=== PATIENT | male | born 1975 | race Hispanic/Latino ===

== ENCOUNTER → 2017-08-02 | Outpatient (CLI) | payer MEDICARE ==
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
--- NOTE | 2017-08-02 16:49 | Diagnostic Imaging Report ---
PROCEDURE:US RETROPERITONEAL ( KIDNEY ). COMPARISON:07/05/2016 INDICATIONS:CALCULUS KIDNEY/ UTI TECHNIQUE: Kat-scale and color sonographic images of the bilateral kidneys and bladder where obtained in transverse and longitudinal planes. FINDINGS: RIGHT KIDNEY: Status post right nephrectomy. LEFT KIDNEY: 12.6 cm, cortex 1.8 cm Cysts: None Solid masses: None Stones: None Hydronephrosis: Mild Echogenicity: Normal Bladder: Unremarkable. Left ureteral jet is visualized. Prostate: Unremarkable (volume of 35.98 cc) CONCLUSION: Status post right nephrectomy. Mild left hydronephrosis, unchanged since the 07/05/2016 examination. Dictated by: Kyle Soliz M.D. on 08/02/2017 at 16:50 Electronically approved by: Kyle Soliz M.D. on 08/02/2017 at 16:50
== END ==
LOC: US 13:38
PROVIDERS: ATTEND Urology
DX: N20.0 Calculus of kidney (principal); N39.0 Urinary tract infection, site not specified
CPT/HCPCS: 74018; 76770

== ENCOUNTER → 2017-11-06 | Outpatient (CLI) | payer MEDICARE ==
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
== END ==
LOC: CT 08:29
PROVIDERS: ATTEND Urology
DX: N20.0 Calculus of kidney (principal)
CPT/HCPCS: 74176

== ENCOUNTER → 2019-09-21 | Outpatient (CLI) | payer MEDICARE ==
--- NOTE | 2019-09-21 11:31 | Diagnostic Imaging Report ---
EXAM: US ABDOMEN COMPLETE DATE: 09/21/2019 9:06 AM INDICATION: Right upper quadrant abdominal pain COMPARISON: CT abdomen/pelvis from 11/06/2017 FINDINGS: The pancreas is not well-visualized secondary to prominent overlying bowel gas. The liver is normal in size measuring 13.7 cm in length. Hepatic echogenicity is within normal limits. No focal hepatic abnormalities identified. The main portal vein is patent with antegrade flow and diameter of 1.2 cm, within normal limits. The gallbladder is surgically absent. There is no biliary ductal dilatation. The common bile duct measures 3 mm. The spleen measures 10.2 cm in length and demonstrates an unremarkable sonographic appearance. The right kidney is surgically absent. The left kidney measures 14.4 x 7.7 x 6.6 cm with normal cortical thickness/echogenicity. There is stable left-sided hydronephrosis and/or multiple parapelvic cysts. There is no evidence for solid renal mass or shadowing calculi. The visual as portions the IVC and aorta are within normal limits. There is no ascites visualized. IMPRESSION: 1. Status post right nephrectomy. Stable moderate left-sided hydronephrosis and/or multiple parapelvic cysts, findings are grossly unchanged from the prior CT examination from 11/06/2017. No shadowing calculi identified. 2. Status post cholecystectomy. Signed by: Dr. Abram Singh MD on 09/21/2019 11:28 AM
== END ==
LOC: US 08:48
PROVIDERS: ATTEND Urology
DX: R10.11 Right upper quadrant pain (principal)
CPT/HCPCS: 76700

== ENCOUNTER → 2020-12-23 | Day surgery (SDC) | payer MEDICARE ==
[2020-12-22 09:47] LABS: BASOPHILS # (AUTO) 0.1 (0.0-0.1); EOSINOPHILS # (AUTO) 0.4 (0.0-0.4); EOSINOPHILS % 6.9 % (0.0-6.0); HEMATOCRIT 40.2 % (38.2-49.6); LYMPHOCYTES # (AUTO) 1.2 (1.0-3.2); LYMPHOCYTES % 23.8 % (18.0-39.1); MEAN CORPUSCULAR HEMOGLOBIN 28.1 pg (28-32); MEAN CORPUSCULAR HGB CONC 32.3 g/dL (31-35); MONOCYTES # (AUTO) 0.4 (0.2-0.8); MONOCYTES % 6.9 % (4.4-11.3); NEUTROPHILS # (AUTO) 3.1 (2.1-6.9); NEUTROPHILS % 61.2 % (38.7-80.0); PLATELET COUNT 253 x10e3/uL (140-360); RED BLOOD COUNT 4.62 x10e6/uL (4.3-5.7); RED CELL DISTRIBUTION WIDTH 12.1 % (11.7-14.4)
[2020-12-22 10:08] LABS: ANION GAP 11.7 mmol/L (8-16); CALCIUM 8.7 mg/dL (8.4-10.2); CREATININE, SERUM 0.62 mg/dL (0.72-1.25); POTASSIUM 3.7 mmol/L (3.5-5.1)
[~2020-12-23] MED LIST: BELLADONNA/OPIUM 30 MG SUPP RC ONE; BOTULINUM TOXIN TYPE A 100 UNIT VIAL IM ONE; CEFTRIAXONE 1 GM VIAL ONE; IOPAMIDOL 300MG/ML 50ML INFUS..BTL IV ONE; SODIUM CHLORIDE 0.9% 50ML 50 ML ONE
[2020-12-23 14:08] VITALS: BP 121/85
== END | disposition home or self-care (01) ==
LOC: OR 11:18
PROVIDERS: ATTEND Urology
DX: N39.46 Mixed incontinence (principal); N39.0 Urinary tract infection, site not specified; N35.912 Unspecified bulbous urethral stricture, male; G82.20 Paraplegia, unspecified; N32.89 Other specified disorders of bladder; Z90.5 Acquired absence of kidney; N32.0 Bladder-neck obstruction; N13.30 Unspecified hydronephrosis; N52.9 Male erectile dysfunction, unspecified; N31.9 Neuromuscular dysfunction of bladder, unspecified; T19.8XXA Foreign body in other parts of genitourinary tract, initial encounter; M79.5 Residual foreign body in soft tissue; I20.9 Angina pectoris, unspecified; W34.00XA Accidental discharge from unspecified firearms or gun, initial encounter; Z01.810 Encounter for preprocedural cardiovascular examination; Z01.812 Encounter for preprocedural laboratory examination; Z20.822 Contact with and (suspected) exposure to COVID-19; Z86.16 Personal history of COVID-19; Z87.442 Personal history of urinary calculi; Z87.891 Personal history of nicotine dependence
CPT/HCPCS: 36415; 52281; 74420; 80048; 85025; 93005; C1758; J0587; J0696; Q9967; U0002

== ENCOUNTER → 2021-06-30 | Outpatient (CLI) | payer MEDICARE ==
[~2021-06-30] MED LIST changes: -BELLADONNA/OPIUM 30 MG SUPP RC ONE; -BOTULINUM TOXIN TYPE A 100 UNIT VIAL IM ONE; -CEFTRIAXONE 1 GM VIAL ONE; -IOPAMIDOL 300MG/ML 50ML INFUS..BTL IV ONE; +IOPAMIDOL 370 MG/ML 200 ML INFUS..BTL INJ ONE; +SODIUM CHLORIDE 0.9% 250ML 250 ML ONE; -SODIUM CHLORIDE 0.9% 50ML 50 ML ONE
[2021-06-30 08:16] LABS: CREATININE, SERUM 0.63 mg/dL (0.72-1.25)
== END ==
LOC: CT 07:25
PROVIDERS: ATTEND Urology
DX: R31.21 Asymptomatic microscopic hematuria (principal)
CPT/HCPCS: 36415; 74178; 82565; 84520; J7050; Q9967

== ENCOUNTER → 2021-09-08 | Day surgery (SDC) | payer MEDICARE ==
[~2021-09-08] MED LIST changes: +AMOXICILLIN500 MG PO; +B&O 60MG R/S 60 MG SUPP PR ONE; +BOTULINUM TOXIN TYPE A 100 UNIT VIAL IM ONE; +CEFTRIAXONE 1 GM VIAL ONE; +DEXAMETHASONE SOD PHOS INJ 4 MG/ML SDV ONE; +FENTANYL CITRATE/PF 100MCG/2 ML INJ ONE; +GENTAMICIN 80MG/NS 100 ML 0 ML IV ONE; -IOPAMIDOL 370 MG/ML 200 ML INFUS..BTL INJ ONE; +IOPAMIDOL 610MG/1ML 300 MG/ML VIAL IV ONE; +LIDOCAINE HCL 2% LOCAL INJ 5 ML SDV VIAL INJ ONE; +MIDAZOLAM HCL 2 MG/2 ML VIAL ONE; +NITROFURANTOIN100 MG PO; +ONDANSETRON HCL INJ 2MG/ML 2ML 2 MG/ML VIAL ONE; +POVIDONE IODINE 0.05% 0.05 % ML PO ONE; +PROPOFOL IV EMULSION 10 MG/ML 20 ML VIAL ONE; +SEVOFLURANE INHAL SOLN 250 ML PEN BTL ONE; -SODIUM CHLORIDE 0.9% 250ML 250 ML ONE
[2021-09-08 07:55] LABS: BASOPHILS % 0.6 % (0.0-1.0); EOSINOPHILS # (AUTO) 0.2 (0.0-0.4); EOSINOPHILS % 2.9 % (0.0-6.0); HEMOGLOBIN 13.7 g/dL (14.0-18.0); LYMPHOCYTES # (AUTO) 1.2 (1.0-3.2); LYMPHOCYTES % 22.8 % (18.0-39.1); MEAN CORPUSCULAR HEMOGLOBIN 28.8 pg (28-32); MEAN CORPUSCULAR HGB CONC 32.6 g/dL (31-35); MEAN CORPUSCULAR VOLUME 88.4 fL (81-99); MONOCYTES # (AUTO) 0.5 (0.2-0.8); MONOCYTES % 8.4 % (4.4-11.3); NEUTROPHILS # (AUTO) 3.6 (2.1-6.9); NEUTROPHILS % 65.1 % (38.7-80.0); PLATELET COUNT 220 x10e3/uL (140-360); RED BLOOD COUNT 4.75 x10e6/uL (4.3-5.7); RED CELL DISTRIBUTION WIDTH 12.1 % (11.7-14.4)
[2021-09-08 08:22] LABS: ANION GAP 12.4 mmol/L (8-16); CALCIUM 8.9 mg/dL (8.4-10.2); CREATININE, SERUM 0.62 mg/dL (0.72-1.25); POTASSIUM 4.4 mmol/L (3.5-5.1)
[2021-09-08 10:15] VITALS: BP 138/84
== END | disposition home or self-care (01) ==
LOC: OR 06:50
PROVIDERS: ATTEND Urology
DX: N39.41 Urge incontinence (principal); N39.0 Urinary tract infection, site not specified; N35.912 Unspecified bulbous urethral stricture, male; N40.0 Benign prostatic hyperplasia without lower urinary tract symptoms; N32.89 Other specified disorders of bladder; N31.9 Neuromuscular dysfunction of bladder, unspecified; Z90.5 Acquired absence of kidney; S24.104S Unspecified injury at T11-T12 level of thoracic spinal cord, sequela; X95.9XXS Assault by unspecified firearm discharge, sequela; Z20.822 Contact with and (suspected) exposure to COVID-19
CPT/HCPCS: 36415; 52005; 52287; 74420; 80048; 85025; 87086; 93005; C1758; J0278; J0587; J1100; J2001; J2250; J2405; J2704; J3010; J7050; Q9967; U0002; J0696; J1580

== ENCOUNTER 2022-01-29 08:59 | Inpatient (IN) | payer MEDICARE ==
[~2022-01-29] VITALS: Ht 175.3 cm; Wt 81.6 kg
[~2022-01-29 08:59] MED LIST changes: -B&O 60MG R/S 60 MG SUPP PR ONE; -BOTULINUM TOXIN TYPE A 100 UNIT VIAL IM ONE; -CEFTRIAXONE 1 GM VIAL ONE; -DEXAMETHASONE SOD PHOS INJ 4 MG/ML SDV ONE; -FENTANYL CITRATE/PF 100MCG/2 ML INJ ONE; +GABAPENTIN300 MG PO; -GENTAMICIN 80MG/NS 100 ML 0 ML IV ONE; -IOPAMIDOL 610MG/1ML 300 MG/ML VIAL IV ONE; -LIDOCAINE HCL 2% LOCAL INJ 5 ML SDV VIAL INJ ONE; -MIDAZOLAM HCL 2 MG/2 ML VIAL ONE; -ONDANSETRON HCL INJ 2MG/ML 2ML 2 MG/ML VIAL ONE; -POVIDONE IODINE 0.05% 0.05 % ML PO ONE; -PROPOFOL IV EMULSION 10 MG/ML 20 ML VIAL ONE; -SEVOFLURANE INHAL SOLN 250 ML PEN BTL ONE
[2022-01-29] MEDS ORDERED: GENTAMICIN 80MG/NS 100 ML 200 ML IV ONE (09:35)
[2022-01-29] MEDS ORDERED: PIPERACILLIN/TAZOBACTAM 3.375 GM VIAL ONE (09:35)
[2022-01-29 09:52] LABS: BASOPHILS % 0.8 % (0.0-1.0); EOSINOPHILS # (AUTO) 0.3 (0.0-0.4); EOSINOPHILS % 6.6 % (0.0-6.0); HEMATOCRIT 41.5 % (38.2-49.6); HEMOGLOBIN 13.5 g/dL (14.0-18.0); LYMPHOCYTES # (AUTO) 1.2 (1.0-3.2); LYMPHOCYTES % 24.1 % (18.0-39.1); MEAN CORPUSCULAR HEMOGLOBIN 29.2 pg (28-32); MEAN CORPUSCULAR HGB CONC 32.5 g/dL (31-35); MEAN CORPUSCULAR VOLUME 89.8 fL (81-99); MONOCYTES # (AUTO) 0.4 (0.2-0.8); MONOCYTES % 7.8 % (4.4-11.3); NEUTROPHILS # (AUTO) 3.1 (2.1-6.9); NEUTROPHILS % 60.3 % (38.7-80.0); PLATELET COUNT 234 x10e3/uL (140-360); RED BLOOD COUNT 4.62 x10e6/uL (4.3-5.7); RED CELL DISTRIBUTION WIDTH 11.8 % (11.7-14.4)
[2022-01-29 10:18] LABS: CREATININE, SERUM 0.68 mg/dL (0.72-1.25)
[2022-01-29 10:35] LABS: INR 0.96; PARTIAL THROMBOPLASTIN TIME 27.4 seconds (23.8-35.5); PROTHROMBIN TIME 13.7 seconds (11.9-14.5)
[2022-01-29] MEDS ORDERED: PHENYLEPHRINE HCL 1% 10 MG/ML VIAL ONE (12:19)
[2022-01-29] MEDS ORDERED: BACITRACIN ZINC 15 GM OINT ONE (12:44)
[2022-01-29] MEDS ORDERED: Vancomycin IV 500 MG ONE ×2 (12:44→12:47)
[2022-01-29] MEDS ORDERED: GENTAMICIN SULFATE 40 MG/ML 2 ML VIAL ONE (12:47)
[2022-01-29] MEDS ORDERED: MIDAZOLAM HCL 2 MG/2 ML VIAL ONE (12:55)
[2022-01-29] MEDS ORDERED: FENTANYL CITRATE/PF 100MCG/2 ML INJ ONE (12:55)
[2022-01-29] MEDS ORDERED: ACETAMINOPHEN 1000 MG/100 ML 100 ML IV ONE (14:23)
[2022-01-29] MEDS ORDERED: ONDANSETRON HCL INJ 2MG/ML 2ML 2 MG/ML VIAL IV PRN (15:15)
[2022-01-29] MEDS ORDERED: DIPHENHYDRAMINE HCL 25 MG CAP PO PRN (15:15)
[2022-01-29] MEDS ORDERED: ACETAMINOPHEN/CODEINE 300MG - 30MG TAB PO PRN (15:15)
[2022-01-29 16:05] LABS: BASOPHILS % 0.4 % (0.0-1.0); EOSINOPHILS # (AUTO) 0.2 (0.0-0.4); EOSINOPHILS % 1.9 % (0.0-6.0); HEMOGLOBIN 13.5 g/dL (14.0-18.0); LYMPHOCYTES # (AUTO) 1.1 (1.0-3.2); LYMPHOCYTES % 12.1 % (18.0-39.1); MEAN CORPUSCULAR HEMOGLOBIN 28.9 pg (28-32); MEAN CORPUSCULAR HGB CONC 32.1 g/dL (31-35); MEAN CORPUSCULAR VOLUME 89.9 fL (81-99); MONOCYTES # (AUTO) 0.2 (0.2-0.8); NEUTROPHILS # (AUTO) 7.6 (2.1-6.9); NEUTROPHILS % 83.1 % (38.7-80.0); PLATELET COUNT 221 x10e3/uL (140-360); RED BLOOD COUNT 4.67 x10e6/uL (4.3-5.7); RED CELL DISTRIBUTION WIDTH 11.8 % (11.7-14.4)
[2022-01-29 16:20] LABS: ANION GAP 14.6 mmol/L (8-16); CALCIUM 8.7 mg/dL (8.4-10.2); CREATININE, SERUM 0.67 mg/dL (0.72-1.25); POTASSIUM 4.6 mmol/L (3.5-5.1)
[2022-01-29] MEDS: DOCUSATE SODIUM 100 MG CAP PO SCH (17:00)
[2022-01-29] MEDS: D5.45%NS/KCL 20MEQ 1,000 ML IV SCH (17:42)
[2022-01-29 18:05] VITALS: BP 142/86
[2022-01-29 18:07] VITALS: BP 142/86
[2022-01-29 20:00] VITALS: BP 109/72
[2022-01-29] MEDS: Morphine 2mg Syringe 2 MG/ML SYR IV PRN (21:24)
[2022-01-29 22:14] VITALS: BP 142/86
[2022-01-30] VITALS (8 sets, daily range): BP systolic 100–126; BP diastolic 61–78
[2022-01-30] MEDS: Morphine 2mg Syringe 2 MG/ML SYR IV PRN (02:30)
[2022-01-30 06:39] LABS: BASOPHILS % 0.1 % (0.0-1.0); HEMATOCRIT 37.5 % (38.2-49.6); HEMOGLOBIN 12.2 g/dL (14.0-18.0); MEAN CORPUSCULAR HEMOGLOBIN 28.9 pg (28-32); MEAN CORPUSCULAR HGB CONC 32.5 g/dL (31-35); MEAN CORPUSCULAR VOLUME 88.9 fL (81-99); MONOCYTES % 5.7 % (4.4-11.3); NEUTROPHILS # (AUTO) 14.9 (2.1-6.9); NEUTROPHILS % 87.5 % (38.7-80.0); PLATELET COUNT 225 x10e3/uL (140-360); RED BLOOD COUNT 4.22 x10e6/uL (4.3-5.7); RED CELL DISTRIBUTION WIDTH 11.5 % (11.7-14.4)
[2022-01-30 07:07] LABS: ANION GAP 13.1 mmol/L (8-16); CALCIUM 8.6 mg/dL (8.4-10.2); CREATININE, SERUM 0.7 mg/dL (0.72-1.25); POTASSIUM 4.1 mmol/L (3.5-5.1)
[2022-01-30] MEDS: DOCUSATE SODIUM 100 MG CAP PO SCH ×2 (08:50→17:24)
[2022-01-30] MEDS: D5.45%NS/KCL 20MEQ 1,000 ML IV SCH ×2 (11:46→19:10)
[2022-01-31] VITALS: BP 106/62
[2022-01-31] MEDS: Morphine 2mg Syringe 2 MG/ML SYR IV PRN (02:18)
[2022-01-31 05:00] LABS: BASOPHILS # (AUTO) 0.1 (0.0-0.1); BASOPHILS % 0.6 % (0.0-1.0); EOSINOPHILS # (AUTO) 0.4 (0.0-0.4); EOSINOPHILS % 3.9 % (0.0-6.0); HEMATOCRIT 34.1 % (38.2-49.6); HEMOGLOBIN 11.5 g/dL (14.0-18.0); LYMPHOCYTES # (AUTO) 2.1 (1.0-3.2); LYMPHOCYTES % 20.6 % (18.0-39.1); MEAN CORPUSCULAR HEMOGLOBIN 29.4 pg (28-32); MEAN CORPUSCULAR HGB CONC 33.7 g/dL (31-35); MEAN CORPUSCULAR VOLUME 87.2 fL (81-99); MONOCYTES # (AUTO) 0.9 (0.2-0.8); MONOCYTES % 9.3 % (4.4-11.3); NEUTROPHILS # (AUTO) 6.5 (2.1-6.9); NEUTROPHILS % 65.3 % (38.7-80.0); PLATELET COUNT 183 x10e3/uL (140-360); RED BLOOD COUNT 3.91 x10e6/uL (4.3-5.7)
[2022-01-31 05:19] LABS: ANION GAP 10.1 mmol/L (8-16); CALCIUM 8.1 mg/dL (8.4-10.2); CREATININE, SERUM 0.7 mg/dL (0.72-1.25); POTASSIUM 4.1 mmol/L (3.5-5.1)
[2022-01-31 05:36] VITALS: BP 108/79
[2022-01-31 08:03] VITALS: BP 109/75
[2022-01-31] MEDS: DOCUSATE SODIUM 100 MG CAP PO SCH (10:00)
[2022-01-31] MEDS: D5.45%NS/KCL 20MEQ 1,000 ML IV SCH (10:01)
[2022-01-31 12:43] VITALS: BP 99/66
[2022-01-31] MEDS ORDERED: ONDANSETRON HCL 4 MG ORAL DISINTEGRATING TAB PO PRN (13:15)
[2022-01-31] MEDS ORDERED: DEXAMETHASONE SOD PHOS INJ 4 MG/ML SDV IV ONE ×2 (15:09)
[2022-01-31] MEDS ORDERED: GLYCOPYRROLATE INJ 0.2 MG/ML VIAL IV ONE (15:09)
[2022-01-31] MEDS ORDERED: PROPOFOL IV EMULSION 10 MG/ML 20 ML VIAL IV ONE (15:09)
[2022-01-31] MEDS ORDERED: KETOROLAC TROMETHAMINE 30 MG/ML VIAL IV ONE (15:09)
[2022-01-31] MEDS ORDERED: SEVOFLURANE INHAL SOLN 250 ML PEN BTL INH ONE (15:09)
[2022-01-31] MEDS ORDERED: LIDOCAINE HCL 2% LOCAL INJ 5 ML SDV VIAL INJ ONE (15:09)
[2022-01-31] MEDS ORDERED: POVIDONE IODINE 0.05% 0.05 % ML PO ONE (15:09)
[2022-01-31] MEDS ORDERED: ONDANSETRON HCL INJ 2MG/ML 2ML 2 MG/ML VIAL IV ONE (15:09)
[2022-01-31] MEDS ORDERED: ACETAMINOPHEN 1000 MG/100 ML IV ONE (15:09)
== END 2022-01-31 15:10 | disposition home or self-care (01) | DRG 709 ==
LOC: OR 08:59 → PACU V 15:16 → MED/SURG2 17:10
PROVIDERS: ADMIT Urology; ATTEND Urology
PROC: 0T7D8ZZ Dilation of Urethra, Via Natural or Artificial Opening Endoscopic (ICD-10-PCS; 2022-01-29)
PROC: 0VUS0JZ Supplement Penis with Synthetic Substitute, Open Approach (ICD-10-PCS; principal; 2022-01-29 12:54)
DX: N52.9 Male erectile dysfunction, unspecified (principal); G82.20 Paraplegia, unspecified; T14.8XXS Other injury of unspecified body region, sequela; N31.9 Neuromuscular dysfunction of bladder, unspecified; N32.89 Other specified disorders of bladder; D64.9 Anemia, unspecified; R33.8 Other retention of urine; N35.912 Unspecified bulbous urethral stricture, male; N39.498 Other specified urinary incontinence; Z90.49 Acquired absence of other specified parts of digestive tract; Z87.440 Personal history of urinary (tract) infections; Z90.5 Acquired absence of kidney; Z86.16 Personal history of COVID-19; Z87.891 Personal history of nicotine dependence; Z20.822 Contact with and (suspected) exposure to COVID-19
CPT/HCPCS: 0223U; 36415; 80048; 83735; 85025; 85610; 85730; 93005; C1776; C1813; J1100; J1580; J1885; J2001; J2250; J2270; J2370; J2405; J2543; J3010; J3370